=== PATIENT | male | born 1990 | race Caucasian/White ===

== ENCOUNTER 2018-10-26 05:20 | Emergency (ER) | payer OTHER, SELFPAY ==
[2018-10-26 05:21] VITALS: BP 138/89; PULSE 100; RESP 14; TEMP 36.8; O2SAT 99; BMI 22.8
--- NOTE | 2018-10-26 05:25 | ED.RN ---
NO OLD EKGS IN MUSE
--- NOTE | 2018-10-26 05:33 | EKG12_ITS ---
Test Reason : CP Blood Pressure : / mmHG Vent. Rate : 093 BPM Atrial Rate : 093 BPM P-R Int : 158 ms QRS Dur : 088 ms QT Int : 346 ms P-R-T Axes : 023 053 047 degrees QTc Int : 430 ms Normal sinus rhythm Normal ECG Confirmed by MICKEY PIMENTEL, GAVINO ([id number]), telegraph editor MERLENE ZAIDI ([id number]) on 10/28/2018 12:49:48 PM Referred By: OSVALDO Confirmed By:GAVINO AREVALO MD
--- NOTE | 2018-10-26 05:33 | RAD_ITS ---
STUDY: X-RAY CHEST REASON FOR EXAM: Male, 28 years old. Chest pain TECHNIQUE: PA and lateral views of the chest. COMPARISON: None. FINDINGS: The lungs are clear and expanded. There is no demonstrated pleural abnormality. Normal size heart. Normal mediastinum and glynn. Normal visualized pulmonary arteries. Normal visualized aortic arch and descending thoracic aorta. Normal visualized thoracic spine. Normal visualized ribs, clavicles, and shoulders. There is no demonstrated abnormality of the visualized soft tissue structures of the upper abdomen. RAD/Chest PA and Lateral IMPRESSION: Normal x-ray examination of the chest. Electronically Signed: Lory Bryant MD at 6:11 EDT Tel , Service support ,
--- NOTE | 2018-10-26 05:33 | ED.VIS.GEN ---
History of Present Illness Chief Complaint: Chest Pain Narrative: Patient is a 28-year-old male who presents with chest pain. This is been going on for about a week. The initial episode lasted about 5 minutes. Episodes since then have been very brief. It occurs multiple times a day. He complains of pain on the right side of his chest along his breast bone. His pain is worse with inspiration movement of the arm or palpation. It is sharp in nature. It is mild. He denies associated symptoms such as fevers cough shortness of breath nausea vomiting. No history of prior similar symptoms. He denies any past medical history and takes no daily prescription medications. He denies recent travel or surgery, history of DVT or pulmonary embolism, known coagulopathies, leg pain or swelling. He states that he thought it may have been just related to chest wall pain. However he wanted to get it checked because a friend and coworker was recently complaining of chest pain but did not seek medical care and collapsed and . Past Medical History - Allergies and Home Meds Allergies/Adverse Reactions: Allergies No Known Allergies Allergy (Verified 10/26/18 05:21) Primary Care Physician: Care Physician,No Primary [Primary Care Provider] - Past Medical History: None Surgical History: no surgical history Smoking Status: Never smoker Review of Systems All systems negative except as indicated General: Denies: Fever Cardiovascular: Reports: Chest pain Respiratory: Denies: Dyspnea, Cough Gastrointestinal: Denies: Nausea, Vomiting Physical Exam Vital Signs/Narrative: Vital Signs Temp Pulse Resp BP Pulse Ox 10/26/18 05:21 98.3 F 100 14 138/89 H 99 Inital Vital Signs reviewed: Yes General: Well nourished, Well developed Head: Normocephalic Eyes: EOMI ENT: Moist mucous membranes Neck: Supple Cardiovascular: Regular rate, Regular rhythm, No murmurs Respiratory: No distress, CTA bilaterally, Chest tenderness - Patient does have right-sided chest pain along the costochondral margin Abdomen: Soft, Nontender Extremities: Nontender, No edema Skin: Normal color Neurological: Alert Psychological: Normal affect Diagnostic/Tx/Re-eval Impressions Chest X-Ray 10/26/18 05:33 IMPRESSION: Normal x-ray examination of the chest. Electronically Signed: Lory Bryant MD at 6:11 EDT Tel , Service support , 10/26/18 05:33 Chest PA and Lateral [RAD] Stat Laboratory Results 10/26/18 10/26/18 10/26/18 05:30 05:30 05:30 WBC 8.7 RBC 4.50 L Hgb 13.7 Hct 40.7 MCV 90.4 MCH 30.4 MCHC 33.7 RDW Std Deviation 39.2 RDW Coeff of Bernice 11.9 Plt Count 237 MPV 8.6 Immature Gran % (Auto) 0.600 Neut % (Auto) 64.6 Lymph % (Auto) 22.6 Metcalfe % (Auto) 10.4 H Eos % (Auto) 1.3 Baso % (Auto) 0.5 Absolute Neuts (auto) 5.7 Absolute Lymphs (auto) 1.97 Nucleated RBC % 0 D-Dimer Quant (PE/DVT) 0.41 Sodium 140 Potassium 3.6 Chloride 105 Carbon Dioxide 29.0 Anion Gap 6 BUN 16 Creatinine 0.96 Estim Creat Clear Calc 118.56 Est GFR (MDRD) Af Amer 119 Est GFR (MDRD) Non-Af 98 BUN/Creatinine Ratio 16.8 Glucose 91 Calcium 8.6 Troponin I < 0.015 - EKG Initial EKG Interpretation: Sinus Rhythm - EKG shows normal sinus rhythm at a rate of 93, normal intervals, normal axis, no acute ischemic changes. - Medical Decision Making EKG normal. CBC BMP troponin d-dimer all normal. Chest x-ray showed no acute process. While in x-ray patient did become lightheaded and was helped to the floor by the medication reconciliation technician. He states he has had prior similar symptoms when he has had blood drawn or had something painful. He believes it was related to his IV. On reevaluation he does feel better. Orthostatic vital signs were negative. His pain seems to be related to chest wall pain. It is reproducible. He was advised on supportive care. He does not appear to have any serious or life-threatening process at this time. He was advised to return for new or worsening symptoms and was instructed on specific signs and symptoms to monitor for and was discharged. ED Disposition - Plan for ED Patient: Disposition: Home or Assisted Living Diagnosis: Chest wall pain Instructions: CHEST WALL PAIN, Costochondritis Referrals: Care Physician,No Primary [Primary Care Provider] -
[2018-10-26 05:42] LABS: Absolute Lymphocyte Count 1.97 X10^3/uL (0.83-4.51); Absolute Neutrophil Count 5.7 X10^3/uL (2.0-7.7); Basophil# 0.04 X10^3/uL; Basophil% 0.5 % (0-1); Eosinophil# 0.11 X10^3/uL; Eosinophils% 1.3 % (0-5); Hematocrit 40.7 % (40-54); Hemoglobin 13.7 g/dL (13.0-16.5); Lymphocyte # 1.97 X10^3/ul (4.0); Lymphocyte % 22.6 % (19-41); Mean Corp Hgb Conc 33.7 g/dL (32-36); Mean Corpuscular Hgb 30.4 pg (27.0-32.0); Mean Corpuscular Volume 90.4 fL (80-94); Mean Platelet Vol. 8.6 fl (6.2-12.0); Monocyte# 0.91 X10^3/uL; Monocyte% 10.4 % (0-10); NRBC Flagged by Analyzer 0 % (0-5); Neutrophil # 5.65 X10^3/uL (2.7-7.7); Neutrophil % 64.6 % (47-70); Platelet Count 237 K/mm3 (150-450); RBC Distribution Width CV 11.9 % (11.6-14.6); RBC Distribution Width SD 39.2 fl (35.1-43.9); White Blood Count 8.7 K/mm3 (4.4-11.0)
[2018-10-26 05:56] LABS: D-Dimer Quantitative (DVT/PE) 0.41 FEU/ug/m (0.27-0.49)
[2018-10-26 05:58] LABS: Anion Gap 6 (5-15); BUN 16 mg/dL (7-18); BUN/Creat Ratio 16.8 RATIO (10-20); Calcium,Total 8.6 mg/dL (8.5-10.1); Chloride 105 mmol/L (98-107); Creatinine, Serum 0.96 mg/dL (0.70-1.30); EST Glomerular Filtration Rate 98 mL/min (>60); Est Glom Filt Rate - Afr Amer 119 mL/min (>60); Estimated Creatinine Clearance 118.56 ml/min; Glucose 91 mg/dL (74-106); Potassium 3.6 mmol/L (3.5-5.1); Sodium Level 140 mmol/L (136-145)
[2018-10-26 06:03] VITALS: BP 118/77; BP 125/77; BP 125/87; PULSE 83; PULSE 87; PULSE 99
[2018-10-26] MEDS: 0.9% Normal Saline 1,000 ML 999 ML IV (06:04)
[2018-10-26 06:21] VITALS: BP 125/84; PULSE 82; RESP 22; O2SAT 98
== END 2018-10-26 06:31 | disposition home or self-care (01) ==
PROVIDERS: Emergency Provider Emergency Medicine
DX: R07.89 Other chest pain (principal); R42 Dizziness and giddiness
CPT/HCPCS: 71046; 80048; 84484; 85025; 85379; 93005; 99284; J7030; A4216